=== PATIENT | female | born 1935 | race African-American/Black ===

== ENCOUNTER 2023-07-27 13:56 | Outpatient (AMB) | payer MEDICARE, OTHER, SELFPAY ==
--- NOTE | 2023-07-27 14:03 | A.OFFVIS_ITS ---
Intake Vital Signs 07/27/23 14:11 BP 136/88 Blood Pressure Location Lt brachial Position Sitting Respiration 14 Pulse 78 Pulse Source Pulse Oximeter Pulse Oximetry (%) 98 Oxygen Delivery Method Room Air Intake Visit Reasons: Chronic SI Pain Intake Note: Patient comes in for initial visit was referred by [facility]. Reports pain 0/10. Allergies No Known Allergies Allergy (Verified 07/27/23 14:10) HPI HPI Comments History of Present Illness Details Leah is very pleasant 88 years old female who presents in my office with complains on pain in the lower lumbar spine with radiation into the anterior surface of the abdomen below the level of the umbilicus in lower abdomen. She reports that rarely pain radiates down to bilateral lower extremities. She does not know the reason the pain started. She had no trauma no car accident. She is wheelchair-bound individual however she can not walk, her gait is shuffling. She can not sleep normally because of her pain can not do activities of daily living she can minimally take care of herself she can not function normally. For ambulation she needs a walker she also has motorized wheelchair. In terms of tissue damage he reports her pain is cramping shooting stabbing tingling stinging sensation. She never had any images of the lumbar spine or pelvis in the past. She is now in physical therapy and she reports improvement with mobility and less of the pain with physical therapy. She never received any injections for her pain. Her past medical history significant for hypertension coronary artery disease status post 2 stents and diabetes. Her stents were done in early 2 thousands nothing recent. Her event specialist food demonstrator is Dr. Yuri Rooney at [address] [place] [address] Drive [phone] Her past surgical history significant for hip hemiarthroplasty secondary to fracture on the left in 2019 she is retired individual she denies smoking cigarettes drinking alcohol drinks caffeinated beverages including coffee and rare soda and she denies recreational drugs Review of Systems Const Reports no additional complaints ENT Reports Normal hearing present Card Reports as per HPI Resp Reports no additional complaints GI Reports no additional complaints Reports no additional complaints Musc Reports as per HPI, Reports abnormal gait and Reports back pain Neuro Reports Normal hearing present, Denies Abnormal speech present, Reports abnormal gait, Denies confusion and Denies Sensory deficit (Neuro) Psych Reports no additional complaints and Denies confusion Physical Exam Vital Signs: Last Vital Signs Pulse 78 03/14/24 14:11 Resp 14 07/27/23 14:11 BP 136/88 07/27/23 14:11 Pulse Ox 98 07/27/23 14:11 Oxygen Delivery Method Room Air 07/27/23 14:11 Const General: no acute distress; No confusion Orientation/consciousness: patient oriented x3 and No confusion Eyes General: appearance normal, both eyes and all related structures Pupils: Equal, round and reactive pupils present EOM: EOMs intact bilaterally Neck Neck: Yes full ROM Chest Chest palpation & inspection: normal inspection of the chest Resp Effort & Inspection: normal respiratory effort, able to speak in complete sentences, normal respiratory pattern, no audible wheezes and no cough Cardio Jugular venous distension: no JVD GI Inspection: Yes normal to inspection Back/Spine/Pelvis Other: She is able to stand up from her wheelchair and walk however her gait is shuffling. She is unable to flex herself forward or backward. Loading test is negative for pain increase bilaterally. Rodo test is negative bilaterally. Pelvic compression test and pelvic distraction test are negative bilaterally. SLR is negative bilaterally. Lassegue test is negative bilaterally. No tenderness on palpation in paraspinal spinal region lumbar spine no tenderness on palpation in the projection of the bilateral sacroiliac joints. Patient reports tenderness on palpation in projection of the mostly left sciatic nerve going on the surface of the muscles from the pelvis. She admits Valsalva maneuver aggravating her pain. She denies incontinence with urine endorse to, she denies urinary retention. Neuro General: patient oriented x3, gait normal and No confusion Cranial nerves: Yes CN's II-XII intact bilaterally, Yes Equal, round and reactive pupils present, Yes Normal hearing present and Yes Ability to bilaterally elevate shoulders present Speech: No Abnormal speech present Gait exam (Neuro): Normal gait present Motor exam (neuro): 5/5 motor strength present throughout Sensory Exam: No Sensory deficit (Neuro) Extrem General: No pedal edema Psych Speech and movement: Normal speech and movement present Affect: normal affect Attitude: cooperative Thought process: Normal thought process present Thought content: Normal thought content present Insight: Good insight present (Psych) Judgement: Good judgement present (Psych) Assessment & Plan Assessment & Plan (1) Low back pain: Code(s): M54.50 - Low back pain, unspecified Plan: (2) Spondylosis of lumbar region without myelopathy or radiculopathy: Code(s): M47.816 - Spondylosis without myelopathy or radiculopathy, lumbar region Plan: This patient is suffering from obscure pain syndrome the reason for which could be disc degeneration or lumbar spondylosis. There also could be some changes in her pelvis resulting in this pain can condition. Pelvic mass can not be excluded in this elderly patient. I decided to send this patient for CT scan of the lumbar spine as well as CT scan of the pelvis. I will see this patient in 1 month. (3) Disc degeneration, lumbar: Code(s): M51.36 - Other intervertebral disc degeneration, lumbar region Plan Orders: Orders CT abdomen pelvis w IV con Today R19.00 - Intra-abdominal and pelvic swelling, mass and lump, unspecified site CT lumbar spine w IV con Today M47.816 - Spondylosis without myelopathy or radiculopathy, lumbar region, M51.36 - Other intervertebral disc degeneration, lumbar region, M54.50 - Low back pain, unspecified Patient Instructions: I here by testify that I spent 45 minutes in conversation with this patient as well as planning her care and organizing her note. Coding Level of Care Code New Pt Level 4 (54782) Diagnoses Low back pain M54.50 Spondylosis of lumbar region without myelopathy or radiculopathy M47.816 Disc degeneration, lumbar M51.36
[2023-07-27 14:11] VITALS: BP 136/88; PULSE 78; RESP 14; O2SAT 98
== END 2023-07-27 14:24 | disposition home or self-care (01) ==
PROVIDERS: PCP Physical Medicine & Rehabilitation; Visit Provider Anesthesiology
DX: M54.50 Low back pain, unspecified (principal); M47.816 Spondylosis without myelopathy or radiculopathy, lumbar region; M51.36 Other intervertebral disc degeneration, lumbar region
CPT/HCPCS: 99204

== ENCOUNTER → 2023-07-27 13:56 | Outpatient (BNVA) | payer MEDICARE, OTHER, SELFPAY | PROVIDERS: PCP Physical Medicine & Rehabilitation; Visit Provider Anesthesiology | DX: M54.50 Low back pain, unspecified (principal); M51.36 Other intervertebral disc degeneration, lumbar region; M47.816 Spondylosis without myelopathy or radiculopathy, lumbar region; Z99.3 Dependence on wheelchair | CPT/HCPCS: 99202 ==